=== PATIENT | female | born 1970 | race Caucasian/White ===

== ENCOUNTER 2017-01-05 09:18 | Emergency (ER) | payer OTHER ==
[2017-01-05 09:25] VITALS: BP 124/89; PULSE 89; TEMP 98.7; BMI 20.5
--- NOTE | 2017-01-05 09:50 | PDOC ---
History of Present Illness - General Chief Complaint: Ear Problem Stated Complaint: ABSCESS UNDER RT EAR Time Seen by Provider: 01/05/17 09:25 History Source: Patient Exam Limitations: No Limitations - History of Present Illness Initial Comments: Evaluation of right posterior earlobe abscess 3 days. And had some lymphadenopathy in her neck feeling mildly malacic. Came for eval.. 01/05/17 09:44 Timing/Duration: unsure Severity: mild, moderate Associated Symptoms: reports: denies symptoms Past History - Travel Traveled outside of the country in the last 30 days: No Close contact w/someone who was outside of country & ill: No - Past Medical History Allergies/Adverse Reactions: Allergies Allergy/AdvReac Type Severity Reaction Status Date / Time tetracycline Allergy Verified 01/05/17 09:25 Home Medications: Ambulatory Orders NK [No Known Home Medication] 01/05/17 Cancer: Yes (H/O UTERINE: 2009) - Surgical History Abdominal Surgery: Yes (uterine CA) - Suicide/Smoking/Psychosocial Hx Smoking History: Never smoked Information on smoking cessation initiated: No Hx Alcohol Use: No Drug/Substance Use Hx: No Substance Use Type: None Review of Systems - Review of Systems Able to Perform ROS?: Yes Is the patient limited Palestinian proficient: Yes Constitutional: Yes: Symptoms Reported, See HPI, Malaise HEENTM: No: Symptoms Reported Musculoskeletal: Yes: Symptoms Reported All Other Systems: Reviewed and Negative *Physical Exam - Vital Signs Last Vital Signs Temp Pulse Resp BP Pulse Ox 98.7 F 89 19 124/89 100 01/05/17 09:23 01/05/17 09:23 01/05/17 09:23 01/05/17 09:23 01/05/17 09:23 - Physical Exam General Appearance: Yes: Nourished, Appropriately Dressed, Apparent Distress, Mild Distress HEENT: positive: EARNESTINE, Normal ENT Inspection, TMs Normal, Pharynx Normal, Other (1 cm fluctuant mass to posterior left earlobe and pointing.) Neck: positive: Supple, Lymphadenopathy (R), Lymphadenopathy (L). negative: Tender Cardiovascular: positive: Regular Rhythm Extremity: positive: Normal Capillary Refill, Normal Inspection Integumentary: positive: Normal Color, Dry, Warm Neurologic: positive: patient safety officer II-XII NML intact, Fully Oriented, Alert, Normal Mood/ Affect, Normal Response, Motor Strength 5/5 Procedures - Incision and Drainage I&D Site: Left: Other (posterior earlobe) Betadine cleansed: Yes Anesthesia: 1% Lidocaine Blade Size: 11 Iodinated Packin/4 in Complications: none Dressing: Yes *DC/Admit/Observation/Transfer Diagnosis at time of Disposition: Abscess - Discharge Dispostion Disposition: HOME Condition at time of disposition: Stable Admit: No - Patient Instructions Printed Discharge Instructions: DI for Incision and Drainage of a Skin Abscess Additional Instructions: Rest, keep area elevated. Avoid strenuous activity or exercise until wound is healed Use hot soaks to area to bring more blood to the surface and encourage drainage May change dressings as needed to keep clean - trying to avoid removal of packing for 2 days. If packing needs to be changed, return to emergency department or with your followup physician for wound care and evaluation and repacking as needed If packing needs to be removed, then in 2 days, while in the shower remove dressing and quickly pull the packing taken out. Allow water from shower to wash area thoroughly for 2-3 minutes, and pat dry upon exit of shower and replace dressing. Change his dressing daily until the wound is completely healed. May use Tylenol or Motrin for mild pain relief Use stronger medications as directed and prescribed Followup with private physician in 2-3 days for wound check Return to emergency Department for worsening swelling, pain, redness, fevers as needed - Post Discharge Activity Forms/Work/School Notes: Back to Work
== END 2017-01-05 10:25 | disposition home or self-care (01) ==
LOC: JERFT 09:18
PROC: 0H93XZX Drainage of Left Ear Skin, External Approach, Diagnostic (ICD-10-PCS; principal; 2017-01-05)
DX: H60.00 Abscess of external ear, unspecified ear (principal)
CPT/HCPCS: 99281-25

== ENCOUNTER 2017-03-06 14:53 | Emergency (ER) | payer OTHER ==
[2017-03-06 14:57] VITALS: BP 135/81; PULSE 85; TEMP 98.1; BMI 20.2
[2017-03-06] MEDS ORDERED: SODIUM CHLORIDE 0.9% 1000 ML INFUS.BAG IV ONE (16:08)
[2017-03-06 16:41] LABS: BASOPHIL 0.7 % (0-2.0); EOSINOPHIL 1.4 % (0-4.5); MCH 32.5 pg (25.7-33.7); MCHC 33.6 g/dl (32.0-36.0); MEAN CELL VOLUME 96.6 fl (80-96); MEAN PLT VOLUME 8.9 fl (7.5-11.1); NEUTROPHILS 64.7 % (42.8-82.8); PLATELET COUNT 324 K/MM3 (134-434); RDW 13.3 % (11.6-15.6); WHITE BLOOD COUNT 9.1 K/mm3 (4.0-10.0)
--- NOTE | 2017-03-06 17:06 | PDOC ---
History of Present Illness - General History Source: Patient Exam Limitations: No Limitations - History of Present Illness Initial Comments: This is a 46 YOF with h/o cervical CA with partial hysterectomy who presents with burning on urination, dark color to urine, and R>L flank pain worsening for the past 3 days. She describes the pain as sharp, 10/10, and nonradiating. She has never had pain like this before and has not taken medication for the pain. She additionally notes chills and decreased appetite but denies any abdominal pain, chest pain, shortness of breath, cough, diarrhea, or constipation (she has decreased BMs but attributes this to decreased PO intake) . She denies any alcohol intake. <Heidi Leigh - Last Filed: 03/06/17 18:59> <Ashley Olivarez - Last Filed: 03/06/17 23:49> - General Chief Complaint: Pain, Acute Stated Complaint: BACK PAIN Time Seen by Provider: 03/06/17 15:45 Past History - Past Medical History Cancer: Yes (H/O UTERINE: 2009) COPD: No - Surgical History Abdominal Surgery: Yes - Suicide/Smoking/Psychosocial Hx Smoking History: Never smoked Hx Alcohol Use: No Drug/Substance Use Hx: No Substance Use Type: None <Heidi Leigh - Last Filed: 03/06/17 18:59> <Ashley Olivarez - Last Filed: 03/06/17 23:49> - Past Medical History Allergies/Adverse Reactions: Allergies Allergy/AdvReac Type Severity Reaction Status Date / Time tetracycline Allergy Mild Hives Verified 03/06/17 14:54 Home Medications: Ambulatory Orders Acetaminophen [Tylenol -] 1,000 mg PO BID PRN #14 tablet 03/06/17 Review of Systems - Review of Systems Able to Perform ROS?: Yes Constitutional: Yes: Chills. No: Fever, Unexplained wgt Loss HEENTM: No: Nose Congestion, Throat Pain Respiratory: No: Cough, Shortness of Breath Cardiac (ROS): No: Chest Pain, Palpitations ABD/GI: No: Constipated, Diarrhea, Rectal Bleeding, Vomiting, Abdominal cramping : Yes: Burning, Dysuria, Flank Pain, Pain. No: Hematuria Musculoskeletal: No: Back Pain, Neck Pain Integumentary: No: Bruising, Rash Neurological: No: Headache, Numbness, Tingling, Weakness, Dizziness Endocrine: No: Unexplained Weight Gain, Unexplained Weight Loss <Heidi Leigh - Last Filed: 03/06/17 18:59> *Physical Exam - Vital Signs Last Vital Signs Temp Pulse Resp BP Pulse Ox 98.1 F 85 18 135/81 100 03/06/17 14:53 03/06/17 14:53 03/06/17 14:53 03/06/17 14:53 03/06/17 14:53 - Physical Exam General Appearance: Yes: Nourished, Appropriately Dressed, Mild Distress, Other (well appearing and nontoxic female who is intermittently tearful, occasionally writhing, but answering questions appropriately) HEENT: positive: EOMI, Normal Voice, Hearing Grossly Normal. negative: Scleral Icterus (R), Scleral Icterus (L), Nasal Congestion Neck: positive: Trachea midline, Supple. negative: Tender, Rigid Respiratory/Chest: positive: Lungs Clear, Normal Breath Sounds. negative: Respiratory Distress, Crackles, Rhonchi, Stridor, Wheezing Cardiovascular: positive: Regular Rhythm, Regular Rate. negative: Murmur Gastrointestinal/Abdominal: positive: Normal Bowel Sounds, Flat, Soft. negative : Tender, Organomegaly, Pulsatile Mass, Guarding Musculoskeletal: positive: Normal Inspection, CVA Tenderness (mild with R>L). negative: Decreased Range of Motion, Vertebral Tenderness Extremity: positive: Normal Capillary Refill, Normal Inspection, Normal Range of Motion. negative: Tender, Cyanosis Integumentary: positive: Normal Color, Dry, Warm. negative: Erythema, Rash, Bruising Neurologic: positive: vending route servicer II-XII NML intact (grossly), Fully Oriented, Alert, Normal Mood/Affect, Normal Response, Motor Strength 5/5 <Heidi Leigh - Last Filed: 03/06/17 18:59> - Vital Signs Last Vital Signs Temp Pulse Resp BP Pulse Ox 98.1 F 85 18 135/81 100 03/06/17 14:53 03/06/17 14:53 03/06/17 14:53 03/06/17 14:53 03/06/17 14:53 <Ashley Olivarez - Last Filed: 03/06/17 23:49> ED Treatment Course - LABORATORY CBC & Chemistry Diagram: 03/06/17 15:55 03/06/17 15:55 - Medications Given in the ED: ED Medications Discontinued Medications Generic Name Dose Route Start Last Admin Trade Name Bria PRN Reason Stop Dose Admin Sodium Chloride 1,000 ml 03/06/17 16:08 03/06/17 16:14 Normal Saline - IV 03/06/17 16:09 1,000 ml ONCE ONE Administration <Heiid Leigh - Last Filed: 03/06/17 18:59> - LABORATORY CBC & Chemistry Diagram: 03/06/17 15:55 03/06/17 15:55 - ADDITIONAL ORDERS Additional order review: Laboratory Results 03/06/17 03/06/17 03/06/17 20:09 20:09 15:55 Sodium 140 Potassium 4.6 Chloride 105 Carbon Dioxide 29 Anion Gap 6 L BUN 18 D Creatinine 0.7 D Creat Clearance w eGFR > 60 Random Glucose 92 D Calcium 8.4 L Total Bilirubin 0.5 AST 9 L D ALT 14 Alkaline Phosphatase 69 D Total Protein 6.7 Albumin 3.4 Urine Color Straw Urine Appearance Clear Urine pH 5.0 Ur Specific [place] 1.014 Urine Protein Negative Urine Glucose (UA) Negative Urine Ketones Trace H Urine Blood 2+ H Urine Nitrite Negative Urine Bilirubin Negative Urine Urobilinogen Negative Ur Leukocyte Esterase Negative Urine WBC (Auto) 20 Urine RBC (Auto) 9 Ur Epithelial Cells Rare Urine Bacteria Rare Urine Mucus Rare Urine HCG, Qual Negative 03/06/17 15:55 Sodium Potassium Chloride Carbon Dioxide Anion Gap BUN Creatinine Creat Clearance w eGFR Random Glucose Calcium Total Bilirubin AST ALT Alkaline Phosphatase Total Protein Albumin Urine Color Cancelled Urine Appearance Cancelled Urine pH Cancelled Ur Specific [place] Cancelled Urine Protein Cancelled Urine Glucose (UA) Cancelled Urine Ketones Cancelled Urine Blood Cancelled Urine Nitrite Cancelled Urine Bilirubin Cancelled Urine Urobilinogen Cancelled Ur Leukocyte Esterase Cancelled Urine WBC (Auto) Urine RBC (Auto) Ur Epithelial Cells Urine Bacteria Urine Mucus Urine HCG, Qual Cancelled 03/06/17 15:55 RBC 3.67 MCV 96.6 H MCHC 33.6 RDW 13.3 MPV 8.9 Neutrophils % 64.7 Lymphocytes % 25.3 Monocytes % 7.9 Eosinophils % 1.4 Basophils % 0.7 - RADIOLOGY Radiology Studies Ordered: Category Date Time Status SPIRAL- RENAL-STONE CT [CT] Stat CT Scan 03/06/17 19:52 Completed - Medications Given in the ED: ED Medications Discontinued Medications Generic Name Dose Route Start Last Admin Trade Name Darvinq PRN Reason Stop Dose Admin Acetaminophen 1,000 mg 03/06/17 17:14 03/06/17 17:33 Ofirmev Injection - IVPB 03/06/17 17:15 1,000 mg ONCE ONE Administration Ondansetron HCl 8 mg 03/06/17 17:11 03/06/17 17:33 Zofran Injection IVPUSH 03/06/17 17:12 8 mg ONCE ONE Administration Sodium Chloride 1,000 ml 03/06/17 16:08 03/06/17 16:14 Normal Saline - IV 03/06/17 16:09 1,000 ml ONCE ONE Administration <Ashley Olivarez - Last Filed: 03/06/17 23:49> Medical Decision Making - Medical Decision Making 46 YOF with h/o cervical CA p/w flank pain and dysuria x3d. She notes dark color to urine as well. When asked she notes some intermittent back pain in the past but this feels different. On exam VS wnl but patient is in mild distress, intermittently tearful, appears uncomfortable. Occasionally writhing and grabbing right flank and low back. No abdominal ttp and mild R>L CVA ttp without midline lumbar ttp. DDX IBNLT UTI/pyelonephritis, ovarian cyst rupture, ovarian torsion, ectopic , appendicitis, back pain. Ordered is CBCD, CMP, UA cx, hCG. 03/06/17 17:12 Patient vomiting in room, ordered is 8 mg IV Zofran, IVF, IV Tylenol. 03/06/17 18:59 Patient no longer vomiting, notes much improved pain after IV Tylenol, improved nausea. Calling lab to check on UA results (still noted as pending). <Heidi Leigh - Last Filed: 03/06/17 18:59> *DC/Admit/Observation/Transfer <Heidi Leigh - Last Filed: 03/06/17 18:59> <Ashley Olivarez - Last Filed: 03/06/17 23:49> Diagnosis at time of Disposition: Flank pain - Discharge Dispostion Disposition: HOME Condition at time of disposition: Good - Prescriptions Prescriptions: Acetaminophen [Tylenol -] 1,000 mg PO BID PRN #14 tablet PRN Reason: Severe Pain - Referrals Referrals: Patrick Rutherford MD [Staff Physician] - - Patient Instructions Printed Discharge Instructions: DI for Dehydration -- Adult, DI for Hematuria Additional Instructions: Please return to the Emergency Department for any worsening or concerning symptoms. Please follow-up with your urologist Dr. Rutherford, and bring a copy of your lab results. - Post Discharge Activity Forms/Work/School Notes: Back to Work
[2017-03-06] MEDS ORDERED: ONDANSETRON 4 MG/2 ML VIAL IVPUSH ONE (17:11)
[2017-03-06] MEDS ORDERED: ACETAMINOPHEN 1000 MG/100 ML VIAL (NON FORMULARY) IVPB ONE (17:14)
[2017-03-06] MEDS ORDERED: ACETAMINOPHEN INJECTION 100 ML IVPB ONE (17:24)
[2017-03-06] MEDS ORDERED: ONDANSETRON 4 MG/2 ML VIAL ONE (17:25)
[2017-03-06 17:36] LABS: ALBUMIN 3.4 g/dl (3.4-5.0); ANION GAP 6 (8-16); CALCIUM 8.4 mg/dL (8.5-10.1); CO2 29 mmol/L (21-32); GLUCOSE,RANDOM 92 mg/dL (74-106)
[2017-03-06 17:40] LABS: ALK PHOS 69 U/L (45-117); BILIRUBIN,TOTAL 0.5 mg/dL (0.2-1.0); CREATININE 0.7 mg/dL (0.55-1.02); SGOT/AST 9 U/L (15-37); SGPT/ALT 14 U/L (12-78); TOT PROT 6.7 g/dl (6.4-8.2)
--- NOTE | 2017-03-06 19:40 | PDOC ---
*Physical Exam - Vital Signs Last Vital Signs Temp Pulse Resp BP Pulse Ox 98.1 F 85 18 135/81 100 03/06/17 14:53 03/06/17 14:53 03/06/17 14:53 03/06/17 14:53 03/06/17 14:53 - Physical Exam General Appearance: Yes: Nourished, Thin Neck: positive: Trachea midline, Supple Respiratory/Chest: positive: Lungs Clear Cardiovascular: positive: S1, S2 Musculoskeletal: negative: CVA Tenderness (R), CVA Tenderness (L) Extremity: positive: Normal Capillary Refill, Normal Inspection Integumentary: positive: Normal Color, Dry, Warm Neurologic: positive: Fully Oriented, Alert ED Treatment Course - LABORATORY CBC & Chemistry Diagram: 03/06/17 15:55 03/06/17 15:55 - ADDITIONAL ORDERS Additional order review: Laboratory Results 03/06/17 15:55 Sodium 140 Potassium 4.6 Chloride 105 Carbon Dioxide 29 Anion Gap 6 L BUN 18 D Creatinine 0.7 D Creat Clearance w eGFR > 60 Random Glucose 92 D Calcium 8.4 L Total Bilirubin 0.5 AST 9 L D ALT 14 Alkaline Phosphatase 69 D Total Protein 6.7 Albumin 3.4 03/06/17 15:55 RBC 3.67 MCV 96.6 H MCHC 33.6 RDW 13.3 MPV 8.9 Neutrophils % 64.7 Lymphocytes % 25.3 Monocytes % 7.9 Eosinophils % 1.4 Basophils % 0.7 - Medications Given in the ED: ED Medications Discontinued Medications Generic Name Dose Route Start Last Admin Trade Name Bria PRN Reason Stop Dose Admin Acetaminophen 1,000 mg 03/06/17 17:14 03/06/17 17:33 Ofirmev Injection - IVPB 03/06/17 17:15 1,000 mg ONCE ONE Administration Ondansetron HCl 8 mg 03/06/17 17:11 03/06/17 17:33 Zofran Injection IVPUSH 03/06/17 17:12 8 mg ONCE ONE Administration Sodium Chloride 1,000 ml 03/06/17 16:08 03/06/17 16:14 Normal Saline - IV 03/06/17 16:09 1,000 ml ONCE ONE Administration Medical Decision Making - Medical Decision Making 03/06/17 19:39 Patient signed out by Dr. Leigh (Resident) and Dr. Ou (Attending) 46 y.o. female with R flank pain + dysuria. At time of signout UA pending (lab lost urine). 03/06/17 23:40 UA significant for 2+ blood, leukocyte esterase (-), nitrite (-). Spiral CT pending to r/o nephrolithiasis. 03/06/17 23:45 CT negative for nephrolithiasis. Patient already f/w Dr. Arauz. Patient discharged home with return precautions, Tylenol for pain control and instructed to follow up with urology for blood in urine. *DC/Admit/Observation/Transfer Diagnosis at time of Disposition: Flank pain - Discharge Dispostion Disposition: HOME Condition at time of disposition: Good Admit: No - Prescriptions Prescriptions: Acetaminophen [Tylenol -] 1,000 mg PO BID PRN #14 tablet PRN Reason: Severe Pain - Referrals Referrals: Patrick Rutherford MD [Staff Physician] - - Patient Instructions Printed Discharge Instructions: DI for Dehydration -- Adult, DI for Hematuria Additional Instructions: Please return to the Emergency Department for any worsening or concerning symptoms. Please follow-up with your urologist Dr. Rutherford, and bring a copy of your lab results. - Post Discharge Activity
[2017-03-06 20:25] LABS: URINE APPEARANCE CLEAR; URINE BILIRUBIN NEGATIVE (NEGATIVE); URINE BLOOD 2+ (NEGATIVE); URINE COLOR STRAW; URINE GLUCOSE (UA) NEGATIVE (NEGATIVE); URINE KETONE TRACE (NEGATIVE); URINE LEUK ESTERASE TRACE (NEGATIVE); URINE NITRITE NEGATIVE (NEGATIVE); URINE PROTEIN NEGATIVE (NEGATIVE); URINE UROBILINOGEN NEGATIVE mg/dL (0.2-1.0)
[2017-03-06 20:41] LABS: URINE BACTERIA RARE /hpf (NONE SEEN); URINE MUCUS RARE; URINE RBC 9 /hpf (0-3); URINE WBC 20 /hpf (3-5)
--- NOTE | 2017-03-06 20:58 | PDOC ---
Attending Attestation - Resident Resident Name: Heidi Leigh - ED Attending Attestation I have performed the following: I have examined & evaluated the patient, The case was reviewed & discussed with the resident, I agree w/resident's findings & plan, Exceptions are as noted - HPI HPI: 03/06/17 20:57 46 F with bilateral flank pain and dysuria x 4 days. Pt endorses subjective fevers. States that she first began to have burning with urination. This progressed to bilateral flank pain over the next several days. Pt denies midline back pain. Denies incontinence. Denies abdominal pain/N/V. - Physicial Exam PE: 03/06/17 21:05 "GENERAL: Awake, alert, and fully oriented, in no acute distress HEAD: No signs of trauma EYES: PERRLA, EOMI, sclera anicteric, conjunctiva clear ENT: Auricles normal inspection, hearing grossly normal, nares patent, oropharynx clear without exudates. Moist mucosa NECK: Nontender, no stepoffs, Normal ROM, supple, no lymphadenopathy, JVD, or masses LUNGS: Breath sounds equal, clear to auscultation bilaterally. No wheezes, and no crackles HEART: Regular rate and rhythm, normal S1 and S2, no murmurs, rubs or gallops ABDOMEN: Soft, nontender, normoactive bowel sounds. No guarding, no rebound. No masses BACK: bilateral CVAT, R>L, no midline TTP EXTREMITIES: Normal range of motion, no edema. No clubbing or cyanosis. No cords, erythema, or tenderness NEUROLOGICAL: Cranial nerves II through XII intact. 5/5 strength and sensation in all extremities, Normal speech, normal gait SKIN: Warm, Dry, normal turgor, no rashes or lesions noted. " - Medical Decision Making 03/06/17 21:05 46 F with bilateral flank pain + dysuria, concerning for pyelo. Pt afebrile with normal vitals and well appearing. Possible nephrolithiasis as well, but less likely given bilateral CVAT. - Labs, UA - Abx if indicated - Consider CT to r/o stone 03/06/17 21:07 Pt signed out to oncoming attending at 7PM, pending UA and possible CT scan.
[2017-03-06 22:34] LABS: URINE LEUK ESTERASE Negative (NEGATIVE)
[2017-03-06] MEDS ORDERED: ACETAMINOPHEN 325 MG TABLET (FP) PO ONE (23:40)
[2017-03-06] MEDS ORDERED: ACETAMINOPHEN 325 MG TABLET (FP) ONE (23:47)
== END 2017-03-06 23:55 | disposition home or self-care (01) ==
LOC: JER 14:53
DX: R10.30 Lower abdominal pain, unspecified (principal); Z85.41 Personal history of malignant neoplasm of cervix uteri
CPT/HCPCS: 36415; 74176; 80053; 81003; 81015; 84703; 85025; 87086; 99283-25